=== PATIENT | female | born 1995 | race Caucasian/White ===

== ENCOUNTER → 2016-08-15 | Outpatient (REF) | payer BC, MEDICAID | LOC: M LAB REF 17:03 | PROVIDERS: ATTEND Advanced Practice Midwife | DX: Z34.82 Encounter for supervision of other normal pregnancy, second trimester (principal) ==

== ENCOUNTER → 2016-11-12 | Outpatient (CLI) | payer BC, MEDICAID ==
[~2016-11-12] MED LIST: MOTR200T44 PO; PRENTAB9 PO; TYLE325T5 PO
== END ==
LOC: M SMT 14:32
PROVIDERS: ATTEND Advanced Practice Midwife
DX: Z34.83 Encounter for supervision of other normal pregnancy, third trimester (principal)
CPT/HCPCS: 36415; 86850; 86901; J2790

== ENCOUNTER → 2017-01-08 | Outpatient (REF) | payer BC, MEDICAID | LOC: M LAB REF 16:59 | PROVIDERS: ATTEND Advanced Practice Midwife | DX: Z34.83 Encounter for supervision of other normal pregnancy, third trimester (principal); Z3A.00 Weeks of gestation of pregnancy not specified ==

== ENCOUNTER 2017-01-28 05:39 | Inpatient (IN) | payer BC, MEDICAID ==
[~2017-01-28] VITALS: Ht 154.9 cm; Wt 73.0 kg
[2017-01-28] VITALS (17 sets, daily range): BP systolic 104–138; BP diastolic 58–89
[2017-01-28] MEDS ORDERED: PRENTAB9 PO (05:48)
[2017-01-28] MEDS ORDERED: OXYTOCIN 30 UNITS IN 0.9% NaCl 500ML IV BAG (J2590) As Ordered ONE (06:54)
[2017-01-28] MEDS: PRENATAL VITAMINS CHEWABLE TABLET PO SCH (09:00)
[2017-01-28] MEDS ORDERED: LR 1,000 ML IV SCH (09:26)
[2017-01-28] MEDS ORDERED: OXYTOCIN DRIP 30 UNITS in APPROPRIATE DILUENT 1 EA IV SCH (09:30)
[2017-01-28 09:32] LABS: MEAN CORPUSCULAR HEMOGLOBIN 28.6 pg (27.0-33.0); MEAN CORPUSCULAR HGB CONC 32.7 g/dl (32.0-36.5); MEAN CORPUSCULAR VOLUME 87.4 fl (80.0-96.0); WHITE BLOOD COUNT 17.5 10^3/uL (4.0-10.0)
[2017-01-28 12:07] LABS: CORD GAS ABE V -5.6; CORD GAS HCO3 V 23.7 MEQ/L; CORD GAS PCO2 V 61.3 mmHg; CORD GAS PH V 7.205 UNITS; CORD GAS PO2 V 23.3 mmHg; CORD GAS SBC V 18.6 MEQ/L; CORD GAS TCO2 V 25.6 MEQ/L
[2017-01-28] MEDS ORDERED: DOCUSATE SODIUM 100 MG CAP PO PRN (13:15)
[2017-01-28] MEDS ORDERED: RHOGAM 300 MCG (1500 IU) INJ (J2790) IM SCH (13:15)
[2017-01-28] MEDS ORDERED: LIDOCAINE 1% MDV INJ 50 ML VIAL INFIL ONE (13:15)
[2017-01-28] MEDS ORDERED: ACETAMINOPHEN 500 MG TAB PO PRN (13:15)
[2017-01-28] MEDS ORDERED: METHYLERGONOVINE MALEATE 0.2 MG TAB PO PRN (13:15)
[2017-01-28] MEDS ORDERED: DIBUCAINE 1% OINTMENT 30GM TOP PRN (13:15)
[2017-01-28] MEDS ORDERED: OXYTOCIN DRIP 30 UNITS in APPROPRIATE DILUENT 1 EA IV ONE (13:15)
[2017-01-28] MEDS ORDERED: MEASLES,MUMPS,RUBELLA VACCINE INJ (MMR-II) (90707) SC SCH (13:15)
[2017-01-28] MEDS ORDERED: IBUPROFEN 800 MG TAB PO PRN (13:15)
--- NOTE | 2017-01-29 03:18 | DN ---
DATE OF DELIVERY: 01/28/2017 PREDELIVERY DIAGNOSIS: 39 plus weeks labor. POSTDELIVERY DIAGNOSIS: Delivered. PROCEDURE: Vacuum assisted vaginal delivery. MARBLE MASON: Froilan Rendon MD. ANESTHESIA: None. ESTIMATED BLOOD LOSS: 250 mL. FINDINGS: 7 pound 13 ounce male . scores 2 and 9. DELIVERY SUMMARY: After a 25-minute second stage, the patient had prolonged bradycardia. Incision made to apply vacuum at +3 station. Delivery was accomplished in a second controlled traction after one popoff along with maternal effort. Moderate shoulder dystocia was encountered. This was relieved by delivery of the posterior arm and was resolved quickly. The infant was placed on the mother's abdomen. The cord was doubly clamped and cut and then the was immediately handed to the awaiting oil distributor tender for evaluation. The placenta delivered spontaneously and appeared to be intact. The patient received intravenous (IV) Pitocin immediately after delivery of the placenta. A first-degree perineal laceration was repaired under local anesthesia with 2-0 chromic in the usual fashion. Sponge and needle counts were correct.
[2017-01-29 06:00] VITALS: BP 119/58
[2017-01-29] MEDS ORDERED: INFLUENZA QUADRIVALENT PF VACCINE 0.5ML SYRINGE (90686) IM ONE (09:00)
[2017-01-29] MEDS: PRENATAL VITAMINS CHEWABLE TABLET PO SCH (09:52)
--- NOTE | 2017-01-29 11:18 | HPE ---
DATE OF ADMISSION: 01/28/2017 REASON FOR ADMISSION: Labor. HISTORY OF PRESENT ILLNESS: Ms. Rivera is a 21-year-old, 1, para 0, who presents at 40 weeks 0 days estimated gestational age by last menstrual period confirmed by her first trimester ultrasound with complaint of contractions. She reports active movement. Denies any vaginal bleeding or leakage of fluid. Her course has been unremarkable. She initiated care in the first trimester and has been appropriate throughout. PAST MEDICAL HISTORY: None. PAST SURGICAL HISTORY: None. PAST OBSTETRICAL HISTORY: She is a 1. MEDICATIONS: Include: - vitamins ALLERGIES: She has allergies to PENICILLIN. SOCIAL HISTORY: She denies any alcohol, tobacco, or drug use during the . PHYSICAL EXAMINATION: Her vital signs are stable. She is afebrile. She has category 1 heart tracing with contractions on tocometer. Her general appearance is well appearing, no acute distress. Her lungs are clear to auscultation bilaterally. Cardiovascular: Heart regular rate and rhythm. Abdomen: Is gravid, not tender. Estimated weight (EFW) 3300 grams. Cervical Exam: She is 5 cm dilated, 90% effaced, 0 station. Bulging of membranes. LABS: Her blood type is O negative. Antibody screen is negative. Rubella is immune. RPR nonreactive. Chlamydia and gonorrhea screens are negative. Hepatitis C is nonreactive. HIV negative. Hepatitis surface antigen is negative. She had a normal 1-hour Glucola. She is group B streptococcus (GBS) negative. ASSESSMENT: 1. Ms. Rivera is a 21-year-old, 1 at 40 weeks 0 days estimated gestational age in active labor. 2. Reassuring status. PLAN: 1. Admit to labor and delivery. Complete blood count (CBC), RPR, type and screen. 2. Patient is a good candidate for an epidural. 3. Anticipate spontaneous vaginal delivery.
[2017-01-29 18:10] VITALS: BP 112/58
[2017-01-30 06:20] VITALS: BP_SYST 108; BP_SYST 111; BP_DIAS 59; BP_DIAS 62
[2017-01-30] MEDS: PRENATAL VITAMINS CHEWABLE TABLET PO SCH (08:14)
[2017-01-30] MEDS ORDERED: MOTR200T44 PO (09:40)
[2017-01-30] MEDS ORDERED: TYLE325T5 PO (09:40)
== END 2017-01-30 10:20 | disposition home or self-care (01) | DRG 560 ==
LOC: M LDO 05:39 → M LDI 06:10 → M OBS 14:31
PROVIDERS: ADMIT Obstetrics & Gynecology; ATTEND Obstetrics & Gynecology
PROC: 10D07Z6 Extraction of Products of Conception, Vacuum, Via Natural or Artificial Opening (ICD-10-PCS; principal; 2017-01-28)
PROC: 0HQ9XZZ Repair Perineum Skin, External Approach (ICD-10-PCS; 2017-01-28)
DX: O48.0 Post-term pregnancy (principal); O76 Abnormality in fetal heart rate and rhythm complicating labor and delivery; Z37.0 Single live birth; Z3A.40 40 weeks gestation of pregnancy; Z88.0 Allergy status to penicillin; O66.0 Obstructed labor due to shoulder dystocia; O70.0 First degree perineal laceration during delivery

== ENCOUNTER → 2018-04-14 | Outpatient (CLI) | payer BC, MEDICAID | LOC: M SMT 14:13 | DX: Z12.4 Encounter for screening for malignant neoplasm of cervix (principal) | CPT/HCPCS: 36415 ==

== ENCOUNTER → 2018-04-14 | Outpatient (REF) | payer BC, MEDICAID | LOC: M LAB REF 19:09 | DX: Z12.4 Encounter for screening for malignant neoplasm of cervix (principal) | CPT/HCPCS: G0123 ==

== ENCOUNTER → 2018-07-06 | Outpatient (REF) | payer BC, MEDICAID | LOC: M LAB REF 17:14 | PROVIDERS: ATTEND Advanced Practice Midwife | DX: Z34.81 Encounter for supervision of other normal pregnancy, first trimester (principal); Z3A.00 Weeks of gestation of pregnancy not specified ==

== ENCOUNTER → 2018-10-26 | Outpatient (CLI) | payer BC, MEDICAID | LOC: M LAB 15:43 | PROVIDERS: ATTEND Advanced Practice Midwife | DX: Z34.82 Encounter for supervision of other normal pregnancy, second trimester (principal); Z3A.00 Weeks of gestation of pregnancy not specified | CPT/HCPCS: 36415; 83655; 86850; 86901; J2790 ==

== ENCOUNTER → 2018-12-20 | Outpatient (REF) | payer BC, MEDICAID | LOC: M LAB REF 18:56 | PROVIDERS: ATTEND Advanced Practice Midwife | DX: Z34.83 Encounter for supervision of other normal pregnancy, third trimester (principal); Z3A.00 Weeks of gestation of pregnancy not specified ==

== ENCOUNTER → 2018-12-28 | Outpatient (CLI) | payer BC, MEDICAID | LOC: M SMT 10:54 | PROVIDERS: ATTEND Advanced Practice Midwife | DX: Z34.83 Encounter for supervision of other normal pregnancy, third trimester (principal); Z3A.00 Weeks of gestation of pregnancy not specified ==

== ENCOUNTER 2019-01-11 01:39 | Inpatient (IN) | payer BC, MEDICAID ==
[~2019-01-11] VITALS: Ht 152.4 cm; Wt 76.6 kg
[2019-01-11 02:27] LABS: HEMOGLOBIN 13.5 g/dl (12.0-15.5); MEAN CORPUSCULAR HEMOGLOBIN 29.7 pg (27.0-33.0); MEAN CORPUSCULAR HGB CONC 33.8 g/dl (32.0-36.5); MEAN CORPUSCULAR VOLUME 88.1 fl (80.0-96.0); PLATELET COUNT, AUTOMATED 170 10^3/uL (150-450); RED BLOOD COUNT 4.54 10^6/uL (4.00-5.40); WHITE BLOOD COUNT 14.6 10^3/uL (4.0-10.0)
[2019-01-11] MEDS ORDERED: OXYTOCIN 30 UNITS IN 0.9% NaCl 500ML IV BAG (J2590) As Ordered ONE (02:40)
[2019-01-11] MEDS ORDERED: OXYTOCIN DRIP 30 UNITS in APPROPRIATE DILUENT 1 EA IV SCH (04:08)
[2019-01-11] MEDS ORDERED: DIBUCAINE 1% OINTMENT 30GM TOP PRN (04:15)
[2019-01-11] MEDS ORDERED: RHOGAM 300 MCG (1500 IU) INJ (J2790) IM SCH (04:15)
[2019-01-11] MEDS ORDERED: METHYLERGONOVINE MALEATE 0.2 MG TAB PO PRN (04:15)
[2019-01-11] MEDS ORDERED: DOCUSATE SODIUM 100 MG CAP PO PRN (04:15)
[2019-01-11] MEDS ORDERED: ACETAMINOPHEN TAB 650MG DOSE (2X325MG) PO PRN (04:15)
[2019-01-11] MEDS ORDERED: IBUPROFEN 800 MG TAB PO PRN (04:15)
[2019-01-11] MEDS ORDERED: IBUPROFEN 600 MG TAB PO PRN (04:15)
[2019-01-11] MEDS ORDERED: MEASLES,MUMPS,RUBELLA VACCINE INJ (MMR-II) (90707) SC SCH (04:15)
[2019-01-11] MEDS ORDERED: ACETAMINOPHEN 500 MG TAB PO PRN (04:15)
[2019-01-11] MEDS ORDERED: ANUSOL HC CREAM 30GM TOP PRN (04:15)
[2019-01-11 06:02] VITALS: BP 110/57
[2019-01-11] MEDS: PRENATAL VITAMINS CHEWABLE TABLET PO SCH (07:49)
[2019-01-11] MEDS ORDERED: SLF 3 ML SYR IV PRN (08:00)
--- NOTE | 2019-01-11 09:19 | HPE ---
DATE OF ADMISSION: 01/11/2019 The patient is a 23-year-old female who is a G2, P1-0-0-1, at 39 weeks and 4 days' gestation who presents to labor and delivery with complaints of painful contractions. The patient initiated care in her first trimester with [facility]. Her has been uncomplicated. Her expected date of delivery (EVELIN) is 01/14/2019 based off of her last menstrual period (LMP) and consistent with her first-trimester ultrasound. The patient reports active movement. She denies vaginal bleeding of leaking of fluid. ALLERGIES: To PENICILLIN. CURRENT MEDICATIONS: - 10 mg - Zantac 150 mg - Zofran 4 mg - vitamins PAST PREGNANCIES: In January of 2017 at 40 weeks' gestation, she had a vaginal delivery of a living male weighing 7 pounds 13 ounces with no complications. LABORATORIES: Blood type is O negative. Her antibody screen is negative. Her hemoglobin and hematocrit in the first trimester was 12.8 and 37.1 with platelets of 221. Rubella is immune. [facility] ([facility] is nonreactive. Hepatitis B surface antigen is negative. HIV is negative. Hepatitis C is nonreactive. Gonorrhea and chlamydia are both negative. She declines genetic testing and carrier screen testing. Her 1-hour glucose tolerance test was 114 with hemoglobin and hematocrit at that time of 12.1 and 35.9 with platelets of 192. Her group B streptococcus (GBS) is negative, and her third-trimester HIV was negative. PAST MEDICAL HISTORY: None. SURGICAL HISTORY: None. FAMILY HISTORY: Paternal aunt with epilepsy, cervical cancer, and breast cancer. SOCIAL HISTORY: The patient is single. The patient is in a relationship and with father of the baby. She denies being a smoker. She denies any history of alcohol abuse prior to or during . She denies any history of illicit drug use prior to or during . She denies any history of sexually-transmitted infection. heart rate 120, moderate variability, positive accelerations, no decelerations. Contractions are every 2-4 minutes. STERILE VAGINAL EXAMINATION (SVE): 5-6 cm with a bulging bag of fluid. VITAL SIGNS: Blood pressure is 119/65, and a heart rate is 84. PHYSICAL ASSESSMENT: GENERAL: Alert and oriented times three. RESPIRATORY: Regular rate in between contractions, increased respiratory rate and effort with contractions. The patient is breathing through contractions. No use of accessory muscles. ABDOMEN: Gravid and nontender to touch. Cephalic presentation noted via Vishal and vaginal examination. ASSESSMENT: Intrauterine (IUP) at 39 weeks' 4 days' gestation, active labor, category 1 heart rate tracing, group B streptococcus (GBS) negative. PLAN: Admit the patient to labor and delivery. Saline lock and laboratories per unit protocol. Out of bed ad boone. Clear-liquid diet. The patient does not desire any pain management at this time, as she has not used any pain medication or epidural with her last delivery. Anticipate cervical change and spontaneous vaginal delivery.
--- NOTE | 2019-01-11 10:25 | DN ---
DATE OF DELIVERY: 01/11/2019 TIME: 0240 STATUS: Delivered. Spontaneous vaginal delivery. PROVIDER: Dahlia España CNM, [place] ANESTHESIA: None. ESTIMATED BLOOD LOSS: 250 mL. FINDINGS: Female, 7 pounds 5 ounces, 3310 grams, Apgars 9/9. Precipitous delivery. The patient is a 23-year-old female, who is now a 2, para 2-0-0-2, at 39 weeks 4 days gestation who presented to labor and delivery in active labor. Her water spontaneously broke at 0232 and she pushed to a living female at 0237 in the right occiput anterior (SAMUEL) with restitution to right occiput transverse (ROT). The anterior shoulder delivered with ease and the corpus immediately followed. The baby was placed on the maternal abdomen active and crying with stimulation. The cord was clamped times two and cut by the father of the baby. A three vessel cord was noted. The placenta delivered spontaneously and intact at 0246. Uterine hemostasis was achieved via rapid infusion of IV Pitocin and fundal massage. The vagina, cervix and perineum was inspected and found to be intact. Mom is planning on breast feeding. She is naming her baby Madhavi. Both mom and baby are in stable condition. All counts of instruments and sponges are correct.
[2019-01-11] MEDS ORDERED: SLF 3 ML SYR IV SCH (14:00)
[2019-01-11 18:00] VITALS: BP 120/75
[2019-01-12 06:18] VITALS: BP 108/59
[2019-01-12] MEDS: PRENATAL VITAMINS CHEWABLE TABLET PO SCH (07:59)
== END 2019-01-12 15:14 | disposition home or self-care (01) | DRG 560 ==
LOC: M LDO 01:39 → M LDI 02:00 → M PED 05:54
PROVIDERS: ADMIT Advanced Practice Midwife; ATTEND Advanced Practice Midwife
PROC: 10E0XZZ Delivery of Products of Conception, External Approach (ICD-10-PCS; principal; 2019-01-11)
DX: O62.3 Precipitate labor (principal); Z37.0 Single live birth; Z3A.39 39 weeks gestation of pregnancy

== ENCOUNTER → 2019-02-19 | Outpatient (CLI) | payer BC ==
--- NOTE | 2019-02-19 12:11 | REP ---
Right ring finger series: Five views. History: Injury in a fall. Swelling at the PIP joint. Findings: Five views of the right ring finger demonstrate a volar plate avulsion chip fracture at the base of the middle phalanx at the PIP joint. This is nondisplaced. There is associated swelling. Impression: Volar plate avulsion chip fracture base of the middle phalanx at the PIP joint. Electronically Signed by Kaiser Polk MD 02/19/2019 12:02 P
== END ==
LOC: M LRY 11:41
PROVIDERS: ATTEND Physician Assistant
DX: S62.624A Displaced fracture of middle phalanx of right ring finger, initial encounter for closed fracture (principal); W19.XXXA Unspecified fall, initial encounter

== ENCOUNTER 2022-08-25 12:26 | Emergency (ER) | payer BC, MEDICAID, OTHER ==
[~2022-08-25] VITALS: Ht 152.4 cm; Wt 59.2 kg
[2022-08-25 14:00] LABS: HEMATOCRIT 42.7 % (36.0-47.0); HEMOGLOBIN 13.9 g/dl (12.0-15.5); MEAN CORPUSCULAR HEMOGLOBIN 28.8 pg (27.0-33.0); MEAN CORPUSCULAR HGB CONC 32.6 g/dl (32.0-36.5); MEAN CORPUSCULAR VOLUME 88.4 fl (80.0-96.0); PLATELET COUNT, AUTOMATED 254 10^3/uL (150-450); RED BLOOD COUNT 4.83 10^6/uL (4.00-5.40); WHITE BLOOD COUNT 10.5 10^3/uL (4.0-10.0)
[2022-08-25 15:41] VITALS: BP 131/67
== END 2022-08-25 15:42 | disposition home or self-care (01) ==
LOC: M ED 12:26
DX: N93.9 Abnormal uterine and vaginal bleeding, unspecified (principal); Z88.0 Allergy status to penicillin

== ENCOUNTER → 2023-01-14 | Outpatient (CLI) | payer BC, MEDICAID | LOC: M WHC 12:18 | PROVIDERS: ATTEND Obstetrics & Gynecology Obstetrics | DX: O28.3 Abnormal ultrasonic finding on antenatal screening of mother (principal); Z3A.20 20 weeks gestation of pregnancy ==

== ENCOUNTER 2023-03-21 21:40 | Outpatient (CLI) | payer BC, MEDICAID ==
[~2023-03-21] VITALS: Ht 152.4 cm; Wt 172.6 kg
[2023-03-21 21:56] VITALS: BP 123/76
== END 2023-03-21 22:50 | disposition home or self-care (01) ==
LOC: M LDO 21:40
PROVIDERS: ATTEND Specialist
DX: O47.03 False labor before 37 completed weeks of gestation, third trimester (principal); Z3A.29 29 weeks gestation of pregnancy
CPT/HCPCS: 59025; G0463

== ENCOUNTER 2023-04-04 16:23 | Outpatient (CLI) | payer BC, MEDICAID ==
[~2023-04-04] VITALS: Ht 152.4 cm; Wt 77.5 kg
[2023-04-04] MEDS ORDERED: NOXI1TAB PO (16:43)
[2023-04-04 16:45] VITALS: BP 108/58
[2023-04-04] MEDS ORDERED: HOME MED LIST COMPLETE! XX SCH (16:50)
[2023-04-04 18:44] LABS: APPEARANCE, URINE CLOUDY (CLEAR); BACTERIA, URINE AUTO NEGATIVE (NEGATIVE); BILIRUBIN, URINE AUTO NEGATIVE (NEGATIVE); BLOOD, URINE BLOOD NEGATIVE (NEGATIVE); COLOR, URINE YELLOW (YELLOW); GLUCOSE, URINE (UA) AUTO NEGATIVE (NEGATIVE); KETONE, URINE AUTO TRACE mg/dL (NEGATIVE); LEUKOCYTE ESTERASE, URINE AUTO 3+ (NEGATIVE); MUCUS, URINE SMALL (NEGATIVE); NITRITE, URINE AUTO NEGATIVE (NEGATIVE); PROTEIN, URINE AUTO NEGATIVE (NEGATIVE); RBC, URINE AUTO 10 /HPF (0-3); SPECIFIC GRAVITY URINE AUTO 1.013 (1.002-1.035); SQUAMOUS EPITHELIAL CELL UR AU 25 /HPF (0-6); WBC, URINE AUTO 28 /HPF (0-3)
== END 2023-04-04 19:05 | disposition home or self-care (01) ==
LOC: M LDO 16:23
PROVIDERS: ATTEND Obstetrics & Gynecology
DX: O36.8130 Decreased fetal movements, third trimester, not applicable or unspecified (principal); Z3A.31 31 weeks gestation of pregnancy
CPT/HCPCS: 59025; 76815; 81001; G0463

== ENCOUNTER 2023-04-05 21:23 | Outpatient (CLI) | payer BC, MEDICAID ==
[~2023-04-05] VITALS: Ht 152.4 cm; Wt 77.0 kg
[~2023-04-05 21:23] MED LIST changes: +NOXI1TAB PO
[2023-04-05 21:38] VITALS: BP 120/70
[2023-04-05 22:33] LABS: TOTAL PROTEIN,RANDOM URINE 13.3 MG/DL (0.0-14.0)
[2023-04-05 22:38] LABS: CREATININE,RANDOM URINE 73.6 MG/DL
== END 2023-04-05 23:05 | disposition home or self-care (01) ==
LOC: M LDO 21:23
PROVIDERS: ATTEND Obstetrics & Gynecology
DX: O26.893 Other specified pregnancy related conditions, third trimester (principal); R60.9 Edema, unspecified; Z3A.31 31 weeks gestation of pregnancy
CPT/HCPCS: 59025; 82570; 84156; G0463

== ENCOUNTER 2023-05-21 20:15 | Outpatient (CLI) | payer BC, MEDICAID ==
[2023-05-21 20:37] VITALS: BP 126/77
[2023-05-21 21:16] VITALS: BP 120/64
== END 2023-05-21 22:57 | disposition home or self-care (01) ==
LOC: M LDO 20:15
PROVIDERS: ATTEND Specialist
DX: O47.1 False labor at or after 37 completed weeks of gestation (principal); Z3A.38 38 weeks gestation of pregnancy
CPT/HCPCS: 59025; G0463

== ENCOUNTER 2024-06-27 19:52 | Emergency (ER) | payer OTHER | END 2024-06-27 20:14 | disposition admitted as inpatient to this hospital (09) | LOC: M ED 19:52 | DX: Z53.21 Procedure and treatment not carried out due to patient leaving prior to being seen by health care provider (principal) ==

== ENCOUNTER 2024-06-27 20:23 | Outpatient (CLI) | payer OTHER ==
[2024-06-27 20:33] VITALS: BP 105/59
== END 2024-06-27 20:57 | disposition home or self-care (01) ==
LOC: M LDO 20:23
PROVIDERS: ATTEND Advanced Practice Midwife
DX: O26.892 Other specified pregnancy related conditions, second trimester (principal); R55 Syncope and collapse; Z3A.24 24 weeks gestation of pregnancy
CPT/HCPCS: 59025; G0463

== ENCOUNTER 2024-07-17 14:20 | Emergency (ER) | payer OTHER ==
[2024-07-17] MEDS ORDERED: AZIT500T5 PO (14:41)
== END 2024-07-17 14:34 | disposition admitted as inpatient to this hospital (09) ==
LOC: M ED 14:20
DX: Z53.21 Procedure and treatment not carried out due to patient leaving prior to being seen by health care provider (principal)

== ENCOUNTER 2024-07-17 14:25 | Outpatient (CLI) | payer OTHER ==
[~2024-07-17] VITALS: Ht 152.4 cm; Wt 76.5 kg
[2024-07-17] MEDS ORDERED: AZIT500T5 PO (14:41)
[2024-07-17 14:43] VITALS: BP 114/74
== END 2024-07-17 15:17 | disposition home or self-care (01) ==
LOC: M LDO 14:25
PROVIDERS: ATTEND Specialist
DX: O26.892 Other specified pregnancy related conditions, second trimester (principal); R25.2 Cramp and spasm; Z3A.27 27 weeks gestation of pregnancy
CPT/HCPCS: 59025; G0463

== ENCOUNTER 2024-08-14 21:38 | Outpatient (CLI) | payer OTHER ==
[~2024-08-14] VITALS: Ht 152.4 cm; Wt 79.6 kg
[~2024-08-14 21:38] MED LIST changes: +AZIT500T5 PO
[2024-08-14 21:51] VITALS: BP 124/77
[2024-08-14] MEDS ORDERED: HOME MED LIST COMPLETE! XX SCH (22:10)
== END 2024-08-14 22:45 | disposition home or self-care (01) ==
LOC: M LDO 21:38
PROVIDERS: ATTEND Specialist
DX: O47.03 False labor before 37 completed weeks of gestation, third trimester (principal); Z3A.30 30 weeks gestation of pregnancy
CPT/HCPCS: 59025; G0463